=== PATIENT | male | born 1945 | race Two or more races ===

== ENCOUNTER 2024-08-31 10:46 | Inpatient (IN) | payer MEDICARE ==
[~2024-08-31] VITALS: Ht 170.2 cm; Wt 112.5 kg
[2024-08-31 01:00] VITALS: BP 124/55; PULSE 94; RESP 17; TEMP 97.6; O2SAT 95
--- NOTE | 2024-08-31 11:24 | DVH ---
CHEST RADIOGRAPH Indication: palpitations Technique: Single frontal view of the chest was obtained COMPARISON: None FINDINGS: Lines and Tubes: None Lungs: Bibasilar atelectasis. Pleura: No effusion. No pneumothorax. Cardiomediastinal contours: Mild cardiomegaly. Bones: Unremarkable IMPRESSION: 1. Mild cardiomegaly with bibasilar atelectasis.
[2024-08-31 11:41] VITALS: PULSE 115; RESP 14; O2SAT 95
[2024-08-31 11:48] LABS: Basophils # (auto) 0 10 ^3/uL (0-0.2); Basophils % (auto) 0.4 % (0.0-2.0); Eosinophils # (auto) 0.1 10 ^3/uL (0-0.8); Eosinophils % (auto) 1.3 % (0.0-7.0); Hematocrit 46.4 % (41.0-53.0); Hemoglobin 15.4 g/dL (13.5-17.5); Lymphocytes # (auto) 2.1 10 ^3/uL (0.4-5.4); Lymphocytes % (auto) 23.6 % (10.0-50.0); Mean Corpuscular Hemoglobin 31.5 pg (28.0-32.0); Mean Corpuscular Hgb Conc. 33.3 g/dL (32.0-36.0); Mean Corpuscular Volume 94.5 fL (80.0-100.0); Monocytes # (auto) 0.7 10 ^3/uL (0-1.3); Monocytes % (auto) 8.2 % (0.0-12.0); Neutrophils # (auto) 5.9 10 ^3/uL (1.6-8.6); Neutrophils % (auto) 66.5 % (37.0-80.0); Nucleated Red Blood Cells % 0.1 %; Platelet Count (auto) 207 10^3/uL (140-450); Red Blood Cells 4.91 10^6/uL (4.5-5.90); Red Cell Distribution Width 14.3 % (11.8-14.3); White Blood Cell 8.9 10^3/uL (4.4-10.8)
[2024-08-31 11:53] LABS: Urine Bacteria None Seen /hpf (None Seen)
[2024-08-31 12:04] LABS: INR 0.93 (0.9-1.15); Partial Thromboplastin Time 28.1 SEC (24.5-34.5); Prothrombin Time 9.9 sec (9.3-11.8)
--- NOTE | 2024-08-31 12:09 | ED.PDOC ---
HPI Comments 79 y.o male with PMHx of Neuropathy, Pulmonary HTN, hyperlipidemia, and Pre DM, presents to the ED for an evaluation of palpitations. Patient reports he woke up this morning with a HR of 134 that would not go down, states he arrived to this area yesterday from [place] via driving. Patient denies any chest pain, SOB, nausea, vomiting, diarrhea, leg pain, fever, or chills. Patient does report frequent irregular heart rate tracked by his watch device but has not been diagnosed with AFIB. Patient denies any recent stress or caffeine intake. Patient also reports a history of Left bundle branch block on his EKG but no previous EKG at this hospital as it is his first time here. No substance, alcohol or tobacco use. Chief Complaint: Palpitations Time Seen by MD: 11:00 Reviewed Notes: Nurses Notes, Medications, Allergies Allergies: Coded Allergies: NO KNOWN ALLERGIES (Unverified , 08/31/24) Information Source: Patient Mode of Arrival: Ambulatory Severity: Moderate Timing: Hours Duration: Since onset Cardiac Risk Factors: HTN, Diabetes PE Risk Factors: None History of: None Modifying Factors: Nothing Associated Signs and Symptoms: None Past Medical History PAST MEDICAL HISTORY: DM (Pre ), HTN (Pulmonary ) Past Medical History (Other): Neuropathy Surgical History (Other): back, Back fusions x2, knee x 3 Family History Family History: Reviewed,noncontributory to illness Social History Smoker: Non-Smoker Alcohol: Denies ETOH Use Drugs: Denies Drug Use Lives In: Home Constitutional: denies: chills, diaphoresis, fatigue, fever, malaise, sweats, weakness, others EENTM: denies: blurred vision, double vision, ear bleeding, ear discharge, ear drainage, ear pain, ear ringing, eye pain, eye redness, hearing loss, mouth pain, mouth swelling, nasal discharge, nose bleeding, nose congestion, nose pain, photophobia, tearing, throat pain, throat swelling, voice changes, others Respiratory: denies: cough, hemoptysis, orthopnea, SOB at rest, shortness of breath, SOB with excertion, stridor, wheezing, others Cardiovascular: reports: palpitations; denies: chest pain, dizzy spells, diaphoresis, Dyspnea on exertion, edema, irregular heart beat, left arm pain, l ightheadedness, PND, syncope, others Gastrointestinal: denies: abdomen distended, abdominal pain, blood streaked bowels, constipated, diarrhea, dysphagia, difficulty swallowing, hematemesis, melena, nausea, poor appetite, poor fluid intake, rectal bleeding, rectal pain, vomiting, others Genitourinary: denies: burning, dysuria, flank pain, frequency, hematuria, incontinence, penile discharge, penile sore, pain, testicle pain, testicle swelling, urgency, others Neurological: denies: dizziness, fainting, headache, left sided numbness, left sided weakness, numbness, paresthesia, pre-existing deficit, right sided numbness, right sided weakness, seizure, speech problems, tingling, tremors, weakness, others Musculoskeletal: denies: back pain, gout, joint pain, joint swelling, muscle pain, muscle stiffness, neck pain, others Integumetry: denies: bruises, change in color, change in hair/nails, dryness, laceration, lesions, lumps, rash, wounds, others Allergic/Immunocompromised: denies: Difficulty Healing, Frequent Infections, Hives, Itching, others Hematologic/Lymphatic: denies: anemia, blood clots, easy bleeding, easy bruising, swollen glands, others Endocrine: denies: excessive hunger, excessive sweating, excessive thirst, excessive urination, flushing, intolerance to cold, intolerance to heat, unexplained weight gain, unexplained weight loss, others Psychiatric: denies: anxiety, bipolar disorder, depression, hopeless, panic disorder, schizophrenia, sleepless, suicidal, others All Other Systems: Reviewed and Negative Physical Exam General Appearance: No Apparent Distress, Normal HEENT: Normal ENT Inspection, Pharynx Normal, TMs Normal Neck: Full Range of Motion, Non-Tender, Normal, Normal Inspection Respiratory: Lungs Clear, No Respiratory Distress, Normal Breath Sounds Cardiovascular: No Edema, No JVD, No Murmur, Normal Peripheral Pulses, Tachycardia Breast Exam: Deferred Gastrointestinal: No Organomegaly, Non Tender, No Pulsatile Mass, Normal Bowel Sounds, Soft Genitalia: Deferred Pelvic: Deferred Rectal: Deferred Extremities: No calf tenderness, Normal capillary refill, Normal inspection, Normal range of motion, Non-tender, No pedal edema Musculoskeletal : Apperance: Normal Neurologic: Alert, back end web developer II-XII nml as Tested, No Motor Deficits, Normal Affect, Normal Mood, No Sensory Deficits Cerebellar Function: Normal Reflexes: Normal Skin: Dry, Normal Color, Warm Lymphatic: No Adenopathy EKG EKG : Pulse Rate (adult): 152 Gray: Normal Cardiac Rhythm: NSR Block: RBBB Hypertrophy: None ST: Nonsp Comments wide complex tachycardia with a rate of 152 with regular rhythm serial EKGs show same wide complex( likely RBBB) st, which improved from 152 to 114 to92 Was a procedure done? Was a procedure done?: No CP Differential Dx Differential Diagnosis: A-fib, A-Flutter, Angina, Anxiety / Panic Attack, Atrial Dysrhythmia, Electrolyte Disorder, Heart Failure, Hyperthyroidism, Hyperventilation, Hypoxia, MAT, PA, PAC's, PSVT, Pulmonary Embolus, PVC's, Renal Failure, Sinus Tachycardia, Torsades De Pointes, Ventricular Dysrhythmia, V-Fib, V-Tach, WPW X-Ray, Labs, Meds, VS Vital Signs Date Time Temp Pulse Resp B/P (MAP) Pulse Ox O2 Delivery O2 Flow Rate FiO2 08/31/24 13:38 92 08/31/24 12:23 98.2 105 17 117/65 (82) 94 98.2 08/31/24 12:09 152 08/31/24 11:41 98.0 115 14 123/66 (85) 93 98.0 08/31/24 11:41 115 14 95 Nasal Cannula* 2 28 08/31/24 11:32 114 08/31/24 10:57 152 08/31/24 10:53 97.7 152 20 122/69 (86) 96 Lab Test 08/31/24 13:02 08/31/24 11:10 08/31/24 11:01 Range/Units Troponin I High Sensitivity 8 8 </=54 ng/L White Blood Count 8.9 4.4-10.8 10^3/uL Red Blood Count 4.91 4.5-5.90 10^6/uL Hemoglobin 15.4 13.5-17.5 g/dL Hematocrit 46.4 41.0-53.0 % Mean Corpuscular Volume 94.5 80.0-100.0 fL Mean Corpuscular Hemoglobin 31.5 28.0-32.0 pg Mean Corpuscular Hemoglobin Concent 33.3 32.0-36.0 g/dL Red Cell Distribution Width 14.3 11.8-14.3 % Platelet Count 207 140-450 10^3/uL Mean Platelet Volume 10.3 6.9-10.8 fL Neutrophils (%) (Auto) 66.5 37.0-80.0 % Lymphocytes (%) (Auto) 23.6 10.0-50.0 % Monocytes (%) (Auto) 8.2 0.0-12.0 % Eosinophils (%) (Auto) 1.3 0.0-7.0 % Basophils (%) (Auto) 0.4 0.0-2.0 % Neutrophils # (Auto) 5.9 1.6-8.6 10 ^3/uL Lymphocytes # (Auto) 2.1 0.4-5.4 10 ^3/uL Monocytes # (Auto) 0.7 0-1.3 10 ^3/uL Eosinophils # (Auto) 0.1 0-0.8 10 ^3/uL Basophils # (Auto) 0 0-0.2 10 ^3/uL Nucleated Red Blood Cells 0.1 % Prothrombin Time 9.9 9.3-11.8 sec Prothrombin Time INR 0.93 0.9-1.15 Activated Partial Thromboplast Time 28.1 24.5-34.5 SEC D-Dimer, Quantitative 0.40 0.0-0.49 mg/L FEU Sodium Level 143 136-145 mmol/L Potassium Level 4.0 3.5-5.1 mmol/L Chloride Level 112 H 98-107 mmol/L Carbon Dioxide Level 19 L 20-31 mmol/L Anion Gap 12 5-15 Blood Urea Nitrogen 28 H 9-23 mg/dL Creatinine 1.90 H 0.700-1.30 mg/dL Glomerular Filtration Rate Calc 35 >90 mL/min BUN/Creatinine Ratio 14.7 10.0-20.0 Serum Glucose 178 H 74-106 mg/dL Calcium Level 9.5 8.7-10.4 mg/dL Total Bilirubin 0.3 0.2-1.0 mg/dL Aspartate Amino Transferase (AST) 25 13-40 U/L Alanine Aminotransferase (ALT) 51 H 7-40 U/L Alkaline Phosphatase 91 46-116 U/L Total Protein 6.7 5.7-8.2 g/dL Albumin 4.7 3.2-4.8 g/dL Urine Color Colorless Yellow Urine Clarity Clear Clear Urine pH 5.0 5.0-9.0 Urine Specific [place] 1.009 1.001-1.035 Urine Protein Negative Negative Urine Ketones Negative Negative Urine Blood Negative Negative /uL Urine Nitrite Negative Negative Urine Bilirubin Negative Negative Urine Urobilinogen Normal Negative mg/dL Urine Leukocyte Esterase Negative Negative /uL Urine RBC <1 0 - 3 /hpf Urine Microscopic WBC < 1 0-3 /HPF Urine Squamous Epithelial Cells None seen <5 /hpf Urine Bacteria None seen None Seen /hpf Urine Glucose Normal Normal mg/dL [facility] [id number] [place] [address] Ph: [phone] DIAGNOSTIC IMAGING Diagnostic Imaging Report : [id number] Signed PATIENT: PARUL FLANNERY ACCT: [id number] UNIT: [id number] : 1945 LOC: ER ROOM / BED: / AGE / SEX: 79 / M ADM STATUS: REG ER SERVICE 1101 ORDERING PHYSICIAN: EDWAR AYALA MD PROCEDURE(s): CXRP - CHEST PORTABLE REASON: palpitations ORDER NUMBER(s): [id number], ACCESSION NUMBER(s): [id number] CHEST RADIOGRAPH Indication: palpitations Technique: Single frontal view of the chest was obtained COMPARISON: None FINDINGS: Lines and Tubes: None Lungs: Bibasilar atelectasis. Pleura: No effusion. No pneumothorax. Cardiomediastinal contours: Mild cardiomegaly. Bones: Unremarkable IMPRESSION: 1. Mild cardiomegaly with bibasilar atelectasis. ATED BY: FEDERICO PENNY MD DICTATED DATE/TIME: 08/31/24 112 SIGNED BY: FEDERICO PENNY MD SIGNED DATE/TIME: 08/31/24 112 CC: Time of 1ST Reevaluation: 12:03 Reevaluation 1ST: Unchanged Time of 2ND Reevaluation: 14:25 Reevaluation 2ND: Improved Patient Education/Counseling: Diagnosis, Treatment, Prognosis, Need For Follow Up Family Education/Counseling: Diagnosis, Treatment, Prognosis, Need For Follow Up Additional Information I reviewed the following notes from patient's past medical encounters: None The following tests were ordered, and results were reviewed by me: PTPTT, D- dimer, EKG x3, Troponin x 3, BMP, CBC, UA Additional Information was gathered from interviewing the following independent historians: (Family, Other Providers, EMT) I reviewed and agreed with the following test results read by other providers: CXR I discussed treatment and results with medical personnel and family pt is improved with his HR spontaneously improved. however, it is unknown if the RBB is new or not. also. he likely h ad svt with RBBB, but the cause is undetermined. he does not have calf pain, nor is his DDI elevated. the fact that the HR improved, also makes PE unlikely. in addition, he has renal failure. he does not live here and plans to drive home to [place]. i feel pt needs to be evaluated before he can drive back. he has no followups here, so will need inpatient cardiology consult Departure 1 Departure Time of Disposition: 14:30 Impression: Primary Impression: Dyspnea Qualified Codes: R06.02 - Shortness of breath Additional Impressions: Palpitation Tachycardia Right bundle branch block Renal failure Qualified Codes: N19 - Unspecified kidney failure Disposition: ADMITTED INPATIENT Admit to: Tele Condition: Stable Critical Care Note Critical Care Time?: Yes (55 min-critical care time only) Critical care comment: Due to concerns for patients condition deteriorating, the care required my highest level of attention and readiness to intervene. I assessed the patient, reviewed the medical records, ordered the appropriate tests and treatments, then reassessed for results and responsiveness. I communicated with medical personnel and consultants and formulated a plan of care. Total critical care time excludes any procedures Stability Stability form required: No Heart Score Heart Score: Heart Score Response (Comments) Value History Moderate Suspicious 1 EKG Repolarization Disturb 1 Age >65 2 Risk Factors >3 or Hx ASHD 2 Troponin Normal limit 0 Total 6 I personally scribed for JIA HERNANDEZ MD ([email or web address]) on 08/31/24 at 12:09. Sulema ctronically submitted by Shelly Lawson ([facility]). JIA HERNANDEZ MD Aug 31, 2024 12:09
[2024-08-31 12:10] LABS: Urine Blood Negative /uL (Negative); Urine Clarity Clear (Clear); Urine Color Colorless (Yellow); Urine Protein, UAD Negative (Negative); Urine Specific Gravity 1.009 (1.001-1.035); Urine Squamous Epithelial Cell None Seen /hpf (<5); Urine Urobilinogen Normal (Negative); Urine WBC < 1 /HPF (0-3)
[2024-08-31 12:14] LABS: Albumin 4.7 g/dL (3.2-4.8); Alkaline Phosphatase 91 U/L (46-116); Anion Gap 12 (5-15); Aspartate Aminotransferase 25 U/L (13-40); BUN/Creatinine Ratio 14.7 (10.0-20.0); Calcium 9.5 mg/dL (8.7-10.4); Sodium 143 mmol/L (136-145)
[2024-08-31 12:15] LABS: Bilirubin, Total 0.3 mg/dL (0.2-1.0); Total Protein 6.7 g/dL (5.7-8.2)
[2024-08-31 12:18] LABS: Alanine Aminotransferase 51 U/L (7-40); Blood Urea Nitrogen 28 mg/dL (9-23); Carbon Dioxide 19 mmol/L (20-31); Chloride 112 mmol/L (98-107); Glucose 178 mg/dL (74-106)
--- NOTE | 2024-08-31 15:59 | ECG ---
[facility] Test Date: 2024-08-31 Test Time: 11:32:39 Pat Name: PARUL FLANNERY Department: ER Room: Gender: M Clinical Educator: ALBINO : 1945 Requested By: EDWAR AYALA Order Number: [id number] Reading MD: Measurements Intervals [place] Rate: 114 P: 79 SC: 170 QRS: -79 QRSD: 145 T: 38 QT: 348 QTc: 480 Interpretive Statements Sinus tachycardia Right bundle branch block Anterolateral infarct, age indeterminate Please click the below link to view image of tracing.
--- NOTE | 2024-08-31 15:59 | ECG ---
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
[2024-08-31] MEDS ORDERED: DOCUSATE SOD 100 MG CAP PO PRN (16:30)
[2024-08-31] MEDS ORDERED: ONDANSETRON HCL 4 MG/2 ML VIAL IV PRN (16:30)
[2024-08-31] MEDS ORDERED: ACETAMINOPHEN 325 MG TAB PO PRN (16:30)
[2024-08-31] MEDS: LACTATED RINGER'S 1,000 ML IV ONE (16:40)
--- NOTE | 2024-08-31 16:48 | DVHHP2 ---
Admitting Diagnosis: Palpitation History of Present Illness 1 y.o male with PMHx of Neuropathy, Pulmonary HTN, hyperlipidemia, and Pre DM, presents to the ED for an evaluation of palpitations. Patient reports he woke up this morning with a HR of 134 that would not go down, states he arrived to this area yesterday from [place] via driving. Patient denies any chest pain, SOB, nausea, vomiting, diarrhea, leg pain, fever, or chills. Patient does report frequent irregular heart rate tracked by his watch device but has not been diagnosed with AFIB. Patient denies any recent stress or caffeine intake. Patient also reports a history of Left bundle branch block on his EKG but no previous EKG at this hospital as it is his first time here. No substance, alcohol or tobacco use. PAST MEDICAL HISTORY: DM (Pre ), HTN (Pulmonary ) Past Medical History (Other): Neuropathy Surgical History (Other): back, Back fusions x2, knee x 3 Family History Family History: Reviewed,noncontributory to illness Social History Smoker: Non-Smoker Alcohol: Denies ETOH Use Drugs: Denies Drug Use Lives In: Home Allergies: Coded Allergies: NO KNOWN ALLERGIES (Unverified , 08/31/24) Current Medications Current Medications Medications (Trade) Dose Ordered Sig/Nagi Route PRN Reason Start Time Stop Time Status Last Admin Sodium Chloride (Saline Lock Ns) 10 ml Q8HR IV 08/31/24 22:00 UNV Docusate Sodium (Colace Capsule) 100 mg BIDPRN PRN PO FOR CONSTIPATION 08/31/24 16:30 UNV Acetaminophen (Tylenol Tablet) 650 mg Q6HP PRN PO PAIN SCALE 1-3 OR TEMP>100.4 08/31/24 16:30 UNV Ondansetron HCl (Zofran) 4 mg Q4HP PRN IV NAUSEA / VOMITING 08/31/24 16:30 UNV Vital Signs Vital Signs Date Time Temp Pulse Resp B/P (MAP) Pulse Ox O2 Delivery O2 Flow Rate FiO2 08/31/24 15:36 84 16 116/57 (76) 96 08/31/24 14:33 97.8 97.8 08/31/24 11:41 Nasal Cannula* 2 28 Physical Exam 79 years old male well nourished well developed. No apparent distress HEENT-atraumatic normocephalic Heart-regular rate and rhythm Lungs clear to auscultate Abdomen soft nontender nondistended Musculoskeletal-plus one pitting edema Neuro-AO x3, no focal deficits Results Labs Test 08/31/24 13:02 08/31/24 11:10 08/31/24 11:01 Range/Units Troponin I High Sensitivity 8 </=54 ng/L White Blood Count 8.9 4.4-10.8 10^3/uL Red Blood Count 4.91 4.5-5.90 10^6/uL Hemoglobin 15.4 13.5-17.5 g/dL Hematocrit 46.4 41.0-53.0 % Mean Corpuscular Volume 94.5 80.0-100.0 fL Mean Corpuscular Hemoglobin 31.5 28.0-32.0 pg Mean Corpuscular Hemoglobin Concent 33.3 32.0-36.0 g/dL Red Cell Distribution Width 14.3 11.8-14.3 % Platelet Count 207 140-450 10^3/uL Mean Platelet Volume 10.3 6.9-10.8 fL Neutrophils (%) (Auto) 66.5 37.0-80.0 % Lymphocytes (%) (Auto) 23.6 10.0-50.0 % Monocytes (%) (Auto) 8.2 0.0-12.0 % Eosinophils (%) (Auto) 1.3 0.0-7.0 % Basophils (%) (Auto) 0.4 0.0-2.0 % Neutrophils # (Auto) 5.9 1.6-8.6 10 ^3/uL Lymphocytes # (Auto) 2.1 0.4-5.4 10 ^3/uL Monocytes # (Auto) 0.7 0-1.3 10 ^3/uL Eosinophils # (Auto) 0.1 0-0.8 10 ^3/uL Basophils # (Auto) 0 0-0.2 10 ^3/uL Nucleated Red Blood Cells 0.1 % Prothrombin Time 9.9 9.3-11.8 sec Prothrombin Time INR 0.93 0.9-1.15 Activated Partial Thromboplast Time 28.1 24.5-34.5 SEC D-Dimer, Quantitative 0.40 0.0-0.49 mg/L FEU Sodium Level 143 136-145 mmol/L Potassium Level 4.0 3.5-5.1 mmol/L Chloride Level 112 H 98-107 mmol/L Carbon Dioxide Level 19 L 20-31 mmol/L Anion Gap 12 5-15 Blood Urea Nitrogen 28 H 9-23 mg/dL Creatinine 1.90 H 0.700-1.30 mg/dL Glomerular Filtration Rate Calc 35 >90 mL/min BUN/Creatinine Ratio 14.7 10.0-20.0 Serum Glucose 178 H 74-106 mg/dL Calcium Level 9.5 8.7-10.4 mg/dL Total Bilirubin 0.3 0.2-1.0 mg/dL Aspartate Amino Transferase (AST) 25 13-40 U/L Alanine Aminotransferase (ALT) 51 H 7-40 U/L Alkaline Phosphatase 91 46-116 U/L Total Protein 6.7 5.7-8.2 g/dL Albumin 4.7 3.2-4.8 g/dL Urine Color Colorless Yellow Urine Clarity Clear Clear Urine pH 5.0 5.0-9.0 Urine Specific [place] 1.009 1.001-1.035 Urine Protein Negative Negative Urine Ketones Negative Negative Urine Blood Negative Negative /uL Urine Nitrite Negative Negative Urine Bilirubin Negative Negative Urine Urobilinogen Normal Negative mg/dL Urine Leukocyte Esterase Negative Negative /uL Urine RBC <1 0 - 3 /hpf Urine Microscopic WBC < 1 0-3 /HPF Urine Squamous Epithelial Cells None seen <5 /hpf Urine Bacteria None seen None Seen /hpf Urine Glucose Normal Normal mg/dL Primary Diagnosis Sinus tachycardic with a right bundle branch block KYRA on CKD Plan Patient says that he had a history of right bundle-branch block Pt has hx of CKD and lower extremity edema. Patient does not recall. Patient does not recall stage of the kidney disease over medications IV fluids for KYRA on CKD Check urine sodium, urine creatinine Nephrology consult Avoid nephrotoxic medication Check echo of the heart for arrhythmia Check TSH, T4 Admit to tele for arrhythmia Cardiology consult Full code Cardiac diet renal Heparin for DVT prophylaxis No GI prophylaxis needed Plan discussed with: Patient Problems List: (1) Tachycardia Status: Acute (2) Renal failure Status: Acute (3) Dyspnea Status: Acute (4) Right bundle branch block Status: Acute Date of Service: Aug 31, 2024 Billing Provider: LEEANNE TAYLOR MD Common Visit Codes: [id number] INP/OBS CARE (MOD) LEEANNE TAYLOR MD Aug 31, 2024 16:48
--- NOTE | 2024-08-31 17:40 | DVH ---
EXAM: US KIDNEY INDICATION: KYRA on CKD TECHNIQUE: Multiple real-time sonographic images of the kidneys and bladder were obtained. COMPARISON: None Findings: Right kidney measures 11.5 cm with normal contours, increased echotexture, and normal cortical thickn ess. Mild hydronephrosis. Nephrolithiasis. No evidence of cystic or solid lesions. Left kidney measures 12.0 cm with normal contours, increased echotexture, and normal cortical thickne ss. Mild hydronephrosis. No evidence of calculi, cystic or solid lesions. Urinary bladder is unremarkable without evidence of abnormal wall thickening, mass, or calculi. Prevo id volume 177 mL. Postvoid volume was not obtained. Impression: 1. Unremarkable sonographic study of the urinary bladder. 2. Mild bilateral hydronephrosis. 3. Right nephrolithiasis. 4. Increased echogenicity of bilateral kidneys. Correlate for medical renal disease.
--- NOTE | 2024-08-31 20:36 | DVHSR ---
APPROVED REPORT EXAM: Two-dimensional and M-mode echocardiogram with Doppler and color Doppler. Blood Pressure: 116/57 mmHg INDICATION Arrhythmia RISK FACTORS Obesity: Height: 5'7", Weight: 233 DIMENSIONS LVDd4.4 (3.8-5.7cm)LA (2D)3.4 (1.9-4.0cm)Aortic Root3.6 (2.0-3.7cm) LVDs2.9 (2.5-4.0cm)LA (MM) (1.9-4.0cm)Aortic Cusp Exc1.7 (1.5-2.0cm) EF (%) 60.0 (55-70%)Rt. Atrium3.9 (1.9-4.0cm)Asc. Aorta cm IVSd1.3 (0.7-1.1cm)RV (D) (1.8-2.4cm) PWd1.3 (0.7-1.1cm) Mitral Valve MitralMitral Stenosis E wave0.59m/sMV Mean GR.mmHg A wave0.89m/sMV Peak GR.mmHg E/A ratio0.72D MVAcm2 DECEL [id number] 1/2 Timems Aortic Valve Aortic ValveAortic Stenosis V10.75m/Valerie Mean GR.3mmHg V21.12m/Valerie Peak GR.5mmHg LVOT Diameter2.3 (1.8-2.4cm)Doppler AVA2.78cm2 Pulmonic Valve V20.73m/s LEFT VENTRICLE The left ventricle is normal size. There is mild concentric left ventricular hypertrophy. The left ventricle is normal in structure and function, LVEF 55%. Mild diastolic dysfunction. Normal wall motion. RIGHT VENTRICLE The right ventricular systolic function is normal. ATRIA The left atrial size is normal. The right atrium size is normal. MITRAL VALVE The mitral valve is grossly normal. Mitral regurgitation is trace. PULMONIC VALVE The pulmonic valve is grossly normal in structure and function. There is no pulmonic valvular regurgitation. TRICUSPID VALVE The tricuspid valve is grossly normal. There is trace tricuspid regurgitation. AORTIC VALVE The aortic valve is trileaflet. No aortic regurgitation is present. GREAT VESSELS The aortic root is normal size. PERICARDIAL EFFUSION No significant pericardial effusion. Other Information Technically limited study due to body habitus. Conclusion The left ventricle is normal size. There is mild concentric left ventricular hypertrophy. The left ve ntricle is normal in structure and function, LVEF 55%. Mild diastolic dysfunction. Normal wall motion . The right ventricular systolic function is normal. The left and right atrial size is normal. No significant valvular disease. No significant pericardial effusion.
[2024-08-31 21:29] VITALS: BP 143/72; PULSE 85; RESP 19; TEMP 97.7; O2SAT 98
[2024-08-31 21:49] VITALS: PULSE 74; RESP 17; O2SAT 95
[2024-08-31] MEDS: SODIUM CHLOR 0.9% PF (SALINE LOCK) 10ML VIAL/SYR IV SCH (22:00)
[2024-08-31] MEDS ORDERED: FIN5T PO (22:03)
[2024-08-31] MEDS ORDERED: TAMS0.4C39 PO (22:03)
[2024-08-31] MEDS ORDERED: FURO20TA4 PO (22:03)
[2024-08-31] MEDS ORDERED: METF-370 PO (22:03)
[2024-08-31] MEDS ORDERED: CLIN1GEL24 TOP (22:03)
[2024-08-31] MEDS ORDERED: ATOR40TA52 PO (22:03)
[2024-08-31] MEDS ORDERED: TOPI50TA53 PO (22:03)
[2024-08-31] MEDS ORDERED: PHEN-1148 PO (22:03)
[2024-08-31] MEDS ORDERED: NIAC1TAB30 PO (22:03)
[2024-08-31] MEDS ORDERED: [UNRECOGNIZED DRUG - CODE] PO (22:03)
[2024-08-31] MEDS ORDERED: KETO2CRE4 TOP (22:03)
[2024-08-31] MEDS ORDERED: POTA-211 PO (22:03)
[2024-08-31] MEDS ORDERED: GAB100C PO (22:03)
[2024-08-31] MEDS ORDERED: IRBE150T49 PO (22:03)
[2024-09-01 05:00] VITALS: BP 139/72; PULSE 76; RESP 18; TEMP 97.7; O2SAT 97
[2024-09-01 07:41] LABS: Basophils # (auto) 0 10 ^3/uL (0-0.2); Basophils % (auto) 0.4 % (0.0-2.0); Eosinophils # (auto) 0.2 10 ^3/uL (0-0.8); Eosinophils % (auto) 2.1 % (0.0-7.0); Hematocrit 46.4 % (41.0-53.0); Lymphocytes # (auto) 2.3 10 ^3/uL (0.4-5.4); Lymphocytes % (auto) 26.8 % (10.0-50.0); Mean Corpuscular Hemoglobin 31.1 pg (28.0-32.0); Mean Corpuscular Hgb Conc. 32.4 g/dL (32.0-36.0); Monocytes # (auto) 0.8 10 ^3/uL (0-1.3); Monocytes % (auto) 8.8 % (0.0-12.0); Neutrophils # (auto) 5.4 10 ^3/uL (1.6-8.6); Neutrophils % (auto) 61.9 % (37.0-80.0); Nucleated Red Blood Cells % 0.1 %; Platelet Count (auto) 203 10^3/uL (140-450); Red Blood Cells 4.84 10^6/uL (4.5-5.90); Red Cell Distribution Width 14.6 % (11.8-14.3); White Blood Cell 8.7 10^3/uL (4.4-10.8)
[2024-09-01 08:00] VITALS: PULSE 92
[2024-09-01 08:07] LABS: Albumin 4.7 g/dL (3.2-4.8); Alkaline Phosphatase 87 U/L (46-116); Anion Gap 9 (5-15); Aspartate Aminotransferase 28 U/L (13-40); Bilirubin, Total 0.5 mg/dL (0.2-1.0); Calcium 9.8 mg/dL (8.7-10.4); Carbon Dioxide 24 mmol/L (20-31); Glucose 99 mg/dL (74-106); Magnesium 2.1 mg/dL (1.6-2.6); Potassium 4.2 mmol/L (3.5-5.1); Sodium 142 mmol/L (136-145); Total Protein 6.8 g/dL (5.7-8.2)
[2024-09-01 08:22] LABS: Alanine Aminotransferase 55 U/L (7-40); Blood Urea Nitrogen 25 mg/dL (9-23); Chloride 109 mmol/L (98-107)
[2024-09-01 09:00] VITALS: BP 117/45; PULSE 93; RESP 18; TEMP 98.1; O2SAT 92
--- NOTE | 2024-09-01 12:10 | ECG ---
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
[2024-09-01 13:00] VITALS: BP 144/84; PULSE 81; RESP 18; TEMP 97.8; O2SAT 95
--- NOTE | 2024-09-01 16:05 | DVHINCON2 ---
Date Seen: Sep 01, 2024 Referring Physician MD Eugene Reason for Consultation Palpitations, arrhythmia History of Present Illness This is an 79-year-old male patient who presents to emergency room with chief complaint of tachycardia. The patient reports that he checked his pulse via pulse oximetry and noticed that his heart rate was elevated and sustaining between 130-160's. He denies any symptoms of palpitations, chest pain, or shortness of breath. The patient was urged to come to the emergency room by his son who then drove him to the emergency room. Upon emergency room arrival, a twelve lead electrocardiogram revealed sinus tachycardia versus SVT with aberrancy (reviewed with ). The patient was then able to convert into a normal sinus rhythm with right bundle branch block without any medication while in the emergency room. At the time of assessment, the patient denies any cardiac symptoms. Initial troponin level was negative. Significant past medical history includes hypertension, dyslipidemia, prediabetes, pulmonary hypertension, BPH, and obesity. Is worth noting that the patient reports taking phentermine at home for weight loss. He denies any caffeine intake. He does not see a biomedical engineering technologist in the outpatient setting. Past Medical History Past medical history reviewed. No other significant than mentioned above. Past Surgical History Back fusion Family History: Patient reports no known family medical history. Family History Family history reviewed. Social History Denies the use of tobacco, alcohol or illicit drugs. Allergies: Coded Allergies: NO KNOWN ALLERGIES (Unverified , 08/31/24) Home Meds Reported Medications Clindamycin Phosphate (Clindamycin Phosphate) 1 % Gel, 1 APPLIC TOP BID 08/31/24 Ketoconazole (Ketoconazole) 2 % Cre, 1 APPLIC TOP DAILY 08/31/24 Gabapentin (Gabapentin) 100 Mg Cap, 2 CAP PO BID 08/31/24 Topiramate (Topiramate) 50 Mg Tab, 1 TAB PO BID 08/31/24 Furosemide (Furosemide) 20 Mg Tab, 2 TAB PO DAILY 08/31/24 Tamsulosin Hcl (Tamsulosin Hcl) 0.4 Mg Cap, 1 CAP PO HS 08/31/24 Tadalafil (Tadalafil) 20 Mg Tab, 1 TAB PO DAILY 08/31/24 Potassium Chloride (Klor-Con 10) 10 Meq Tab, 1 TAB PO BID 08/31/24 Niacin (Niacin ER) 500 Mg Tab, 500 MG PO HS, TAB 08/31/24 Irbesartan (IRBESARTAN) 150 Mg Tab, 1 TAB PO DAILY 08/31/24 Finasteride (Finasteride) 5 Mg Tab, 1 TAB PO DAILY 08/31/24 Atorvastatin Calcium (ATORVASTATIN CALCIUM) 40 Mg Tab, 1 TAB PO DAILY 08/31/24 Metformin Hydrochloride (Metformin Hcl) 500 Mg Tab, 1 TAB PO BID 08/31/24 Phentermine HCl (Phentermine Hydrochloride) 37.5 Mg Cap, 1 CAP PO DAILY 08/31/24 Home Meds Home medications reviewed. Current Medications Current Medications Medications (Trade) Dose Ordered Sig/Nagi Route PRN Reason Start Time Stop Time Status Last Admin Sodium Chloride (Saline Lock Ns) 10 ml Q8HR IV 08/31/24 22:00 09/01/24 14:22 Docusate Sodium (Colace Capsule) 100 mg BIDPRN PRN PO FOR CONSTIPATION 08/31/24 16:30 Acetaminophen (Tylenol Tablet) 650 mg Q6HP PRN PO PAIN SCALE 1-3 OR TEMP>100.4 08/31/24 16:30 Ondansetron HCl (Zofran) 4 mg Q4HP PRN IV NAUSEA / VOMITING 08/31/24 16:30 Review of Systems Constitutional: No symptom reported Ears, Nose, & Throat: No symptom reported Eyes: No symptom reported Neurological: No symptoms reported Pulmonary/Respiratory: No symptoms reported Cardiovascular: Tachycardia Gastrointestinal: No symptom reported Genitourinary: No symptom reported Musculoskeletal: No symptom reported Skin: No symptom reported Psychiatric: No symptom reported Endocrine: No symptom reported Hematologic/Lymphatic: No symptom reported Vital Signs Vital Signs Date Time Temp Pulse Resp B/P (MAP) Pulse Ox O2 Delivery O2 Flow Rate FiO2 09/01/24 13:00 97.8 81 18 144/84 (104) 95 97.8 09/01/24 08:05 Room Air* 0 21 Physical Exam General Appearance: Cooperative. Morbidly abuse Pulmonary/Respiratory: Clear, bilateral breaths sounds. Cardiovascular/Chest: Regular rate and rhythm. Peripheral Pulses: 2+ Radial (R). 2+ Radial (L). 2+ Pedal (R). 2+ Pedal (L) Abdominal Exam: Normal bowel sounds. Ankle Exam: Negative ankle edema Lower extremities: Negative lower extremity edema Neuro/Mental Status: A/OX4, coherent. Thoughts/Psych: Normal thought pattern. Appropriate mood and affect. Good judgment and insight. Appearance: No acute distress. Skin Exam: Normal inspection. Normal color. Warm and dry. Labs/Diagnostic Data Labs Test 09/01/24 06:53 08/31/24 13:02 08/31/24 11:10 08/31/24 11:01 Range/Units White Blood Count 8.7 4.4-10.8 10^3/uL Red Blood Count 4.84 4.5-5.90 10^6/uL Hemoglobin 15.0 13.5-17.5 g/dL Hematocrit 46.4 41.0-53.0 % Mean Corpuscular Volume 96.0 80.0-100.0 fL Mean Corpuscular Hemoglobin 31.1 28.0-32.0 pg Mean Corpuscular Hemoglobin Concent 32.4 32.0-36.0 g/dL Red Cell Distribution Width 14.6 H 11.8-14.3 % Platelet Count 203 140-450 10^3/uL Mean Platelet Volume 9.7 6.9-10.8 fL Neutrophils (%) (Auto) 61.9 37.0-80.0 % Lymphocytes (%) (Auto) 26.8 10.0-50.0 % Monocytes (%) (Auto) 8.8 0.0-12.0 % Eosinophils (%) (Auto) 2.1 0.0-7.0 % Basophils (%) (Auto) 0.4 0.0-2.0 % Neutrophils # (Auto) 5.4 1.6-8.6 10 ^3/uL Lymphocytes # (Auto) 2.3 0.4-5.4 10 ^3/uL Monocytes # (Auto) 0.8 0-1.3 10 ^3/uL Eosinophils # (Auto) 0.2 0-0.8 10 ^3/uL Basophils # (Auto) 0 0-0.2 10 ^3/uL Nucleated Red Blood Cells 0.1 % Sodium Level 142 136-145 mmol/L Potassium Level 4.2 3.5-5.1 mmol/L Chloride Level 109 H 98-107 mmol/L Carbon Dioxide Level 24 20-31 mmol/L Anion Gap 9 5-15 Blood Urea Nitrogen 25 H 9-23 mg/dL Creatinine 1.67 H 0.700-1.30 mg/dL Glomerular Filtration Rate Calc 41 >90 mL/min BUN/Creatinine Ratio 15.0 10.0-20.0 Serum Glucose 99 74-106 mg/dL Calcium Level 9.8 8.7-10.4 mg/dL Magnesium Level 2.1 1.6-2.6 mg/dL Total Bilirubin 0.5 0.2-1.0 mg/dL Aspartate Amino Transferase (AST) 28 13-40 U/L Alanine Aminotransferase (ALT) 55 H 7-40 U/L Alkaline Phosphatase 87 46-116 U/L Total Protein 6.8 5.7-8.2 g/dL Albumin 4.7 3.2-4.8 g/dL Troponin I High Sensitivity 8 </=54 ng/L Prothrombin Time 9.9 9.3-11.8 sec Prothrombin Time INR 0.93 0.9-1.15 Activated Partial Thromboplast Time 28.1 24.5-34.5 SEC D-Dimer, Quantitative 0.40 0.0-0.49 mg/L FEU Thyroid Stimulating Hormone (TSH) 2.45 0.55-4.78 uIU/mL Urine Color Colorless Yellow Urine Clarity Clear Clear Urine pH 5.0 5.0-9.0 Urine Specific [place] 1.009 1.001-1.035 Urine Protein Negative Negative Urine Ketones Negative Negative Urine Blood Negative Negative /uL Urine Nitrite Negative Negative Urine Bilirubin Negative Negative Urine Urobilinogen Normal Negative mg/dL Urine Leukocyte Esterase Negative Negative /uL Urine RBC <1 0 - 3 /hpf Urine Microscopic WBC < 1 0-3 /HPF Urine Squamous Epithelial Cells None seen <5 /hpf Urine Bacteria None seen None Seen /hpf Urine Glucose Normal Normal mg/dL Assessment Sinus tachycardia versus SVT with aberrancy, ?Medication induced Hypertension Dyslipidemia Pulmonary hypertension Prediabetes BPH Obesity Plan/Recommendation We will continue with the following plan/recommendations (Dr. Horvath): Patient seen and examined at bedside with . Transthoracic echocardiogram reveals an EF of 55%. At this time, we will recommend to consult electrophysiology team to further investigate initial twelve lead electrocardiogram (ST vs SVT with aberrancy). We also discussed with the patient the importance of stopping phentermine as this can induced tachycardia. In the meantime, continue with close cardiac surveillance. Thank you for allowing us to care for this patient. Please call with any questions or marcello rns. Critical care time spent: 40 minutes This medical document was created using an electronic medical record system with voice recognition software and computerized dictation system. Although this document has been carefully reviewed, there might still be some phonetic and typographical errors. Occasional wrong-word or ``sound-alike substitutions may have occurred due to the inherent limitations of voice recognition software. These areas are purely typographical due to imperfections of the software programs and do not reflect any compromise in the patient's medical care. Please read the chart carefully and recognize, using context, where these substitutions have occurred. Plan discussed with: Patient NYHA Physical activity limitations: NA Date of Service: Sep 01, 2024 Billing Provider: RENAN ANDREW Cardiology Common Codes: [id number] INP/OBS CARE (High) Cardiology Consultation Codes: [id number] CONSULT <45MIN RENAN ANDREW Sep 01, 2024 16:05
--- NOTE | 2024-09-01 18:10 | DVHPN2 ---
Subjective 09/01 patient is doing well, no chest pain, no palpitations. Ambulating, tolerating p.o.. He is on tele. We will monitor for for another midnight to make sure no abnormal rhythms. Reviewed: H&P Changes from previous H/P or p: No Changes General: Per HPI Objective Vitals Vital Signs Date Time Temp Pulse Resp B/P (MAP) Pulse Ox O2 Delivery O2 Flow Rate FiO2 09/01/24 13:00 97.8 81 18 144/84 (104) 95 97.8 09/01/24 08:05 Room Air* 0 21 Intake/Output Intake and Output 09/01/24 07:00 Intake Total 400 ml Balance 400 ml Intake Oral 400 ml # Voids 1 Exam GEN: Healthy appearing, well-developed, NAD. HEENT: NC/AT; MMM. CV: RRR, no m/r/g. LUNGS: CTAB, no w/r/c. ABD: Soft, NT/ND, NBS, no masses or organomegaly. EXT: skin Warm, well perfused. no rashes. No clubbing, cyanosis, or edema. NEURO: Ambulating with no limitations. No focal deficits. Medications Current Medications Medications Dose Ordered Sig/Nagi Route Start Time Stop Time Status Last Admin Dose Admin Sodium Chloride 10 ml Q8HR IV 08/31/24 22:00 09/01/24 14:22 10 ML Docusate Sodium 100 mg BIDPRN PRN PO 08/31/24 16:30 Acetaminophen 650 mg Q6HP PRN PO 08/31/24 16:30 Ondansetron HCl 4 mg Q4HP PRN IV 08/31/24 16:30 Laboratory Results Laboratory Tests 09/01/24 06:53 Chemistry Test 09/01/24 06:53 Albumin 4.7 g/dL (3.2-4.8) Calcium Level 9.8 mg/dL (8.7-10.4) Magnesium Level 2.1 mg/dL (1.6-2.6) Total Protein 6.8 g/dL (5.7-8.2) LFT Test 09/01/24 06:53 Alanine Aminotransferase (ALT) 55 U/L (7-40) H Alkaline Phosphatase 87 U/L (46-116) Aspartate Amino Transferase (AST) 28 U/L (13-40) Total Bilirubin 0.5 mg/dL (0.2-1.0) Urinalysis Test 08/31/24 11:01 Urine Color Colorless (Yellow) Urine Clarity Clear (Clear) Urine pH 5.0 (5.0-9.0) Urine Specific [place] 1.009 (1.001-1.035) Urine Protein Negative (Negative) Urine Ketones Negative (Negative) Urine Blood Negative /uL (Negative) Urine Nitrite Negative (Negative) Urine Bilirubin Negative (Negative) Urine Urobilinogen Normal mg/dL (Negative) Urine Leukocyte Esterase Negative /uL (Negative) Urine RBC <1 /hpf (0 - 3) Urine Microscopic WBC < 1 /HPF (0-3) Urine Squamous Epithelial Cells None seen /hpf (<5) Urine Bacteria None seen /hpf (None Seen) Urine Glucose Normal mg/dL (Normal) Labs and/or images reviewed: Labs reviewed by me, Image(s) reviewed by me Assessment/Plan Assessment/Plan 09/01 patient is doing well, no chest pain, no palpitations. Ambulating, tolerating p.o.. He is on tele. We will monitor for for another midnight to make sure no abnormal rhythms. ## Palpitations ## Right bundle anamaria block ## Sinus tachycardia # KYRA on CKD-nephrology is consulted, renal ultrasound shows chronic kidney disease, bilateral hydronephrosis. We will need bedside bladder ultrasound to make sure patient does not retain. ### History NAWAF uses CPAP at home # Prediabetes - achs accuchecks # Hypertension- home meds # BPH- home meds -EKG has wide complex tachycardia, Sinus tachycardic with a right bundle branch block. -patient has no history of heart failure or coronary artery disease -patient just recently did11 hour drive to see his son. -TSH is normal -no URI symptoms TSH normal limits Troponins are negative -patient medication includes phentermine, niacin,-these medications can cause tachycardia. Hypovolemia/not drinking hydrating during drive can also cause tachycardia from volume depletion. -p.o. hydration -tele, EKG p.r.n. -hold off possible home medications causing sympathetic overdrive (niacin, phentermine) -cardiology is consulted, following - if all else negative, patient will need cardiology outpatient follow up Diet cardiac DVT out of bed GI tolerating diet Med tele Full code Plan discussed with: Patient My Orders Orders - MARIA ESTHER JACOBS MD Procedure Category Date Status Time Hi Ekg Tracing ORDERS 09/01/24 Transmitted 17:59 Finasteride Tablet PHA 09/02/24 Verified (Proscar Tablet) 10:00 Furosemide Tablet PHA 09/02/24 Verified (Lasix Tablet) 10:00 Gabapentin Capsule PHA 09/01/24 Verified (Neurontin Capsule) 22:00 Metformin PHA 09/01/24 Verified Hydrochloride 22:00 Potassium Er Tablet PHA 09/01/24 Verified (Klor-Con Tablet) 22:00 Tamsulosin PHA 09/01/24 Verified Hydrochloride (Flomax) 22:00 (Nf) Atorvastatin PHA 09/02/24 Verified Calcium 10:00 (Nf) Irbesartan PHA 09/02/24 Verified 10:00 (Nf) Tadalafil PHA 09/02/24 Verified 10:00 (Nf) Topiramate PHA 09/01/24 Verified 22:00 Date of Service: Sep 01, 2024 Billing Provider: MARIA ESTHER JACOBS MD Common Visit Codes: [id number] INP/OBS CARE(HIGH) MARIA ESTHER JACOBS MD Sep 01, 2024 18:10
--- NOTE | 2024-09-01 18:53 | DVHINCON2 ---
Date of service: Sep 01, 2024 Reason for Consultation Acute kidney injury History of Present Illness 79-year-old overweight white male with past medical history of chronic kidney disease stage 2, hypertension, BPH on prostate medications. Patient is here on vacation presents to the hospital due to severe sudden onset palpitations. Patient was admitted with a diagnosis of SVT. Nephrology consulted due to elevated creatinine level. Patient reports he has been taking multiple weight loss stimulants. In regards to his renal history he reports he has been told that his kidney function was mild to moderate, and he takes diuretics daily to prevent swelling. At presentation patient's heart rate was noted to be 160 yesterday Today patient's heart rates between 80-90 Allergies: Coded Allergies: NO KNOWN ALLERGIES (Unverified , 08/31/24) Home Meds Reported Medications Clindamycin Phosphate (Clindamycin Phosphate) 1 % Gel, 1 APPLIC TOP BID 08/31/24 Ketoconazole (Ketoconazole) 2 % Cre, 1 APPLIC TOP DAILY 08/31/24 Gabapentin (Gabapentin) 100 Mg Cap, 2 CAP PO BID 08/31/24 Topiramate (Topiramate) 50 Mg Tab, 1 TAB PO BID 08/31/24 Furosemide (Furosemide) 20 Mg Tab, 2 TAB PO DAILY 08/31/24 Tamsulosin Hcl (Tamsulosin Hcl) 0.4 Mg Cap, 1 CAP PO HS 08/31/24 Tadalafil (Tadalafil) 20 Mg Tab, 1 TAB PO DAILY 08/31/24 Potassium Chloride (Klor-Con 10) 10 Meq Tab, 1 TAB PO BID 08/31/24 Niacin (Niacin ER) 500 Mg Tab, 500 MG PO HS, TAB 08/31/24 Irbesartan (IRBESARTAN) 150 Mg Tab, 1 TAB PO DAILY 08/31/24 Finasteride (Finasteride) 5 Mg Tab, 1 TAB PO DAILY 08/31/24 Atorvastatin Calcium (ATORVASTATIN CALCIUM) 40 Mg Tab, 1 TAB PO DAILY 08/31/24 Metformin Hydrochloride (Metformin Hcl) 500 Mg Tab, 1 TAB PO BID 08/31/24 Phentermine HCl (Phentermine Hydrochloride) 37.5 Mg Cap, 1 CAP PO DAILY 08/31/24 Current Medications Current Medications Medications (Trade) Dose Ordered Sig/Nagi Route PRN Reason Start Time Stop Time Status Last Admin Sodium Chloride (Saline Lock Ns) 10 ml Q8HR IV 08/31/24 22:00 09/01/24 14:22 Finasteride (Proscar Tablet) 5 mg DAILY PO 09/02/24 10:00 Furosemide (Lasix Tablet) 40 mg DAILY PO 09/02/24 10:00 Gabapentin (Neurontin Capsule) 300 mg BID PO 09/01/24 22:00 Metformin HCl (Glucophage) 500 mg BID PO 09/01/24 22:00 Potassium Chloride (Klor-Con Tablet) 10 meq BID PO 09/01/24 22:00 Tamsulosin HCl (Flomax) 0.4 mg HS PO 09/01/24 22:00 Atorvastatin Calcium (Lipitor) 40 mg DAILY PO 09/02/24 10:00 Losartan Potassium (Cozaar Tablet) 50 mg DAILY PO 09/02/24 10:00 Patient Own Medication 1 tab DAILY PO 09/02/24 10:00 Topiramate (Topamax) 50 mg BID PO 09/01/24 22:00 Family History: Patient reports no known family medical history. Review of Systems Palpitations H&P Exam Vital Signs/I&O Vital Sign Date Time Temp Pulse Resp B/P (MAP) Pulse Ox O2 Delivery O2 Flow Rate FiO2 09/01/24 13:00 97.8 81 18 144/84 (104) 95 97.8 09/01/24 08:05 Room Air* 0 21 Intake and Output 08/31/24 09/01/24 19:00 07:00 Intake Total 400 ml Balance 400 ml Intake Oral 400 ml # Voids 1 Physical Exam Morbidly obese male Not in overt distress Regular rate and rhythm No tachycardia Large abdomen non firm nondistended 1+ bilateral ankle edema Clear to auscultation bilaterally Labs/Diagnostic Data Labs/Diagnostic Data Laboratory Tests Test 09/01/24 06:53 08/31/24 13:02 08/31/24 11:10 08/31/24 11:01 Range/Units White Blood Count 8.7 8.9 4.4-10.8 10^3/uL Red Blood Count 4.84 4.91 4.5-5.90 10^6/uL Hemoglobin 15.0 15.4 13.5-17.5 g/dL Hematocrit 46.4 46.4 41.0-53.0 % Mean Corpuscular Volume 96.0 94.5 80.0-100.0 fL Mean Corpuscular Hemoglobin 31.1 31.5 28.0-32.0 pg Mean Corpuscular Hemoglobin Concent 32.4 33.3 32.0-36.0 g/dL Red Cell Distribution Width 14.6 H 14.3 11.8-14.3 % Platelet Count 203 207 140-450 10^3/uL Mean Platelet Volume 9.7 10.3 6.9-10.8 fL Neutrophils (%) (Auto) 61.9 66.5 37.0-80.0 % Lymphocytes (%) (Auto) 26.8 23.6 10.0-50.0 % Monocytes (%) (Auto) 8.8 8.2 0.0-12.0 % Eosinophils (%) (Auto) 2.1 1.3 0.0-7.0 % Basophils (%) (Auto) 0.4 0.4 0.0-2.0 % Neutrophils # (Auto) 5.4 5.9 1.6-8.6 10 ^3/uL Lymphocytes # (Auto) 2.3 2.1 0.4-5.4 10 ^3/uL Monocytes # (Auto) 0.8 0.7 0-1.3 10 ^3/uL Eosinophils # (Auto) 0.2 0.1 0-0.8 10 ^3/uL Basophils # (Auto) 0 0 0-0.2 10 ^3/uL Nucleated Red Blood Cells 0.1 0.1 % Sodium Level 142 143 136-145 mmol/L Potassium Level 4.2 4.0 3.5-5.1 mmol/L Chloride Level 109 H 112 H 98-107 mmol/L Carbon Dioxide Level 24 19 L 20-31 mmol/L Anion Gap 9 12 5-15 Blood Urea Nitrogen 25 H 28 H 9-23 mg/dL Creatinine 1.67 H 1.90 H 0.700-1.30 mg/dL Glomerular Filtration Rate Calc 41 35 >90 mL/min BUN/Creatinine Ratio 15.0 14.7 10.0-20.0 Serum Glucose 99 178 H 74-106 mg/dL Calcium Level 9.8 9.5 8.7-10.4 mg/dL Magnesium Level 2.1 1.6-2.6 mg/dL Total Bilirubin 0.5 0.3 0.2-1.0 mg/dL Aspartate Amino Transferase (AST) 28 25 13-40 U/L Alanine Aminotransferase (ALT) 55 H 51 H 7-40 U/L Alkaline Phosphatase 87 91 46-116 U/L Total Protein 6.8 6.7 5.7-8.2 g/dL Albumin 4.7 4.7 3.2-4.8 g/dL Troponin I High Sensitivity 8 8 </=54 ng/L Prothrombin Time 9.9 9.3-11.8 sec Prothrombin Time INR 0.93 0.9-1.15 Activated Partial Thromboplast Time 28.1 24.5-34.5 SEC D-Dimer, Quantitative 0.40 0.0-0.49 mg/L FEU Thyroid Stimulating Hormone (TSH) 2.45 0.55-4.78 uIU/mL Urine Color Colorless Yellow Urine Clarity Clear Clear Urine pH 5.0 5.0-9.0 Urine Specific [place] 1.009 1.001-1.035 Urine Protein Negative Negative Urine Ketones Negative Negative Urine Blood Negative Negative /uL Urine Nitrite Negative Negative Urine Bilirubin Negative Negative Urine Urobilinogen Normal Negative mg/dL Urine Leukocyte Esterase Negative Negative /uL Urine RBC <1 0 - 3 /hpf Urine Microscopic WBC < 1 0-3 /HPF Urine Squamous Epithelial Cells None seen <5 /hpf Urine Bacteria None seen None Seen /hpf Urine Glucose Normal Normal mg/dL Assessment Acute kidney injury hemodynamically mediated likely in the setting of hypotension from palpitations Chronic kidney disease stage 2? Palpitations in the setting of tachycardic arrhythmia likely stimulant induced BPH with mild bilateral hydronephrosis Right kidney stone Continue with diuretic therapy Recommend obtain lab review tomorrow a.m. to ensure improved renal function Patient currently does not have Caputo catheter and has mild bilateral hydronephrosis recommend continue prostate medications Recommend obtaining postvoid residual tomorrow a.m. and if patient is able to empty his bladder than advised him to return to his urologist. Rest of care as per Cardiology and primary medical team. Patient is out of town here on vacation and we will need to see his established medical doctors upon discharge Plan discussed with: Patient NIR SANTANA MD Sep 01, 2024 18:53
[2024-09-01] MEDS: TAMSULOSIN HYDROCHLORIDE 0.4 MG CAP PO SCH (19:00)
[2024-09-01] MEDS: FINASTERIDE 5 MG TAB PO SCH (19:00)
[2024-09-01 20:00] VITALS: PULSE 86; PULSE 87; RESP 18; O2SAT 94
[2024-09-01 21:00] VITALS: BP 130/65; PULSE 87; RESP 18; TEMP 97.9; O2SAT 94
[2024-09-01] MEDS: TOPIRAMATE 25 MG TAB PO SCH (21:22)
[2024-09-01] MEDS: POTASSIUM CHL 10 Meq TABLET PO SCH (21:22)
[2024-09-01] MEDS: metFORMIN HYDROCHLORIDE 500 MG TAB PO SCH (21:23)
[2024-09-01] MEDS: GABAPENTIN 300 MG CAP PO SCH (21:24)
[2024-09-01] MEDS ORDERED: TAMSULOSIN HYDROCHLORIDE 0.4 MG CAP PO SCH (22:00)
[2024-09-02] VITALS (7 sets, daily range): BP systolic 116–138; BP diastolic 55–71; PULSE 69–89; RESP 18–20; TEMP 97.4–98; O2SAT 96–98
[2024-09-02 06:50] LABS: Basophils # (auto) 0 10 ^3/uL (0-0.2); Basophils % (auto) 0.5 % (0.0-2.0); Eosinophils # (auto) 0.2 10 ^3/uL (0-0.8); Eosinophils % (auto) 2.4 % (0.0-7.0); Hematocrit 43.4 % (41.0-53.0); Hemoglobin 14.3 g/dL (13.5-17.5); Lymphocytes # (auto) 1.6 10 ^3/uL (0.4-5.4); Lymphocytes % (auto) 23.7 % (10.0-50.0); Mean Corpuscular Hemoglobin 31.4 pg (28.0-32.0); Mean Corpuscular Hgb Conc. 32.9 g/dL (32.0-36.0); Mean Corpuscular Volume 95.3 fL (80.0-100.0); Monocytes # (auto) 0.5 10 ^3/uL (0-1.3); Monocytes % (auto) 7.9 % (0.0-12.0); Neutrophils # (auto) 4.5 10 ^3/uL (1.6-8.6); Neutrophils % (auto) 65.5 % (37.0-80.0); Nucleated Red Blood Cells % 0.1 %; Platelet Count (auto) 176 10^3/uL (140-450); Red Blood Cells 4.55 10^6/uL (4.5-5.90); White Blood Cell 6.9 10^3/uL (4.4-10.8)
[2024-09-02 07:16] LABS: Albumin 4.1 g/dL (3.2-4.8); Alkaline Phosphatase 78 U/L (46-116); Anion Gap 7 (5-15); Aspartate Aminotransferase 25 U/L (13-40); BUN/Creatinine Ratio 12.8 (10.0-20.0); Blood Urea Nitrogen 19 mg/dL (9-23); Calcium 9.3 mg/dL (8.7-10.4); Carbon Dioxide 21 mmol/L (20-31); Glucose 106 mg/dL (74-106); Magnesium 2.1 mg/dL (1.6-2.6); Potassium 4.2 mmol/L (3.5-5.1); Sodium 140 mmol/L (136-145)
[2024-09-02 07:17] LABS: Bilirubin, Total 0.4 mg/dL (0.2-1.0)
[2024-09-02 07:19] LABS: Alanine Aminotransferase 48 U/L (7-40); Chloride 112 mmol/L (98-107)
[2024-09-02] MEDS ORDERED: FINASTERIDE 5 MG TAB PO SCH (10:00)
[2024-09-02] MEDS: LOSARTAN POTASSIUM 50 MG TAB PO SCH (10:30)
[2024-09-02] MEDS: FUROSEMIDE 40 MG TAB PO SCH (10:31)
[2024-09-02] MEDS: ATORVASTATIN 20 MG TAB PO SCH (10:32)
--- NOTE | 2024-09-02 14:28 | DVHPN2 ---
Progress Note Date Seen: Sep 02, 2024 Medical Necessity Reason Pt with a Central, PICC or Fol: No Subjective Patient reports: No new complaints, Feels better Review of Systems: HEENT:Normal, CVS:Normal, RESPIRATORY:Normal, GI:Normal, :Normal, MSK:Normal, NEURO:Normal Objective vital signs Vital Sign Date Time Temp Pulse Resp B/P (MAP) Pulse Ox O2 Delivery O2 Flow Rate FiO2 09/02/24 10:31 124/62 09/02/24 09:00 97.5 86 18 97 97.5 09/02/24 08:10 Room Air* 0 21 Total Intake and Output 09/01/24 09/01/24 09/02/24 15:00 23:00 07:00 Intake Total 598 ml 100 ml Balance 598 ml 100 ml medications Current Medications Medications Dose Ordered Sig/Nagi Route Start Time Stop Time Status Last Admin Dose Admin Sodium Chloride 10 ml Q8HR IV 08/31/24 22:00 09/02/24 05:53 10 ML Docusate Sodium 100 mg BIDPRN PRN PO 08/31/24 16:30 Acetaminophen 650 mg Q6HP PRN PO 08/31/24 16:30 Ondansetron HCl 4 mg Q4HP PRN IV 08/31/24 16:30 Furosemide 40 mg DAILY PO 09/02/24 10:00 09/02/24 10:31 40 MG Gabapentin 300 mg BID PO 09/01/24 22:00 09/02/24 10:31 300 MG Metformin HCl 500 mg BID PO 09/01/24 22:00 09/02/24 10:30 500 MG Potassium Chloride 10 meq BID PO 09/01/24 22:00 09/02/24 10:31 10 MEQ Atorvastatin Calcium 40 mg DAILY PO 09/02/24 10:00 09/02/24 10:32 40 MG Losartan Potassium 50 mg DAILY PO 09/02/24 10:00 09/02/24 10:30 50 MG Patient Own Medication 1 tab DAILY PO 09/02/24 10:00 Topiramate 50 mg BID PO 09/01/24 22:00 Finasteride 5 mg DAILY PO 09/01/24 19:00 09/02/24 10:32 5 MG Tamsulosin HCl 0.4 mg HS PO 09/01/24 19:00 09/01/24 21:22 0.4 MG Metoprolol Tartrate 25 mg BID PO 09/02/24 22:00 Apixaban 5 mg BID PO 09/02/24 22:00 Examination: GENERAL:Normal, HEENT:Normal, NECK:Normal, LUNGS:Normal, CVS:Normal, ABDOMEN:Normal, MSK:Normal, SKIN:Normal, NEURO:Normal, :Normal laboratory and microbiology Laboratory Tests 09/02/24 06:22 Test 09/02/24 06:22 Range/Units Serum Glucose 106 74-106 mg/dL Problem List/Assessment/Plan Problem List/Assessment/Plan Acute kidney injury hemodynamically mediated likely in the setting of hypotension from palpitations Chronic kidney disease stage 2? 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
--- NOTE | 2024-09-02 14:41 | DVHINCON2 ---
Date of service: Sep 02, 2024 Referring Physician Sarah Ford NP Reason for Consultation Arrhythmia History of Present Illness This is an 79-year old male who initially presented (08/31/2024) with reports of an elevated heart rate. Patient reports he checked his pulse oximetry and found his heart rate elevated subsequently prompting further medical evaluation. Patient reports he currently lives in [place] and is out visiting his son here in [place] and upon noticing elevation in heart rate, patient was driven by his son to the ED for further evaluation. Upon ED arrival, initial 12-lead electrocardiogram was performed revealing presence of a 2:1 atrial flutter with a ventricular rate of 152bpm, QTC interval of 546ms, and an underlying right bundle branch block. Reports indicate the patient spontaneously converted to sinus rhythm without intervention as confirmed by repeat 12-lead electrocardiogram. Initial HS troponin level was found normal at 8 with subsequent repeat level of 8. Electrolytes (potassium/magnesium) were found within normal range. TSH level was found normal at 2.45. D-Dimer was found normal at 0.40. Echocardiogram was performed revealing a preserved LVEF of 55%, mild diastolic dysfunction, with normal-sized atrial chambers. Patient himself does report he has experienced palpitations in the past for which he has underwent Cardiology evaluation/workup in [place] which he reports benign findings. Upon chart review, notes further indicate he is known to take Phentermine which could have attributed to the clinical picture. At present time of consultation, telemetry reveals sinus rhythm. Denies any chest pain, shortness of breath, palpitations, dizziness, syncope, or any further cardiac related symptoms. As the patient presented with a tachyarrhythmia, Electrophysiology services have now been involved by primary cardiology request for further evaluation/management. Past Medical History Past medical history includes hypertension, hyperlipidemia, pulmonary hypertension, benign prostatic hypertrophy, morbid obesity, obstructive sleep apnea on CPAP therapy, and right shoulder surgery Past Surgical History Reviewed Family History: Patient reports no known family medical history. Allergies: Coded Allergies: NO KNOWN ALLERGIES (Unverified , 08/31/24) Home Meds Reported Medications Clindamycin Phosphate (Clindamycin Phosphate) 1 % Gel, 1 APPLIC TOP BID 08/31/24 Ketoconazole (Ketoconazole) 2 % Cre, 1 APPLIC TOP DAILY 08/31/24 Gabapentin (Gabapentin) 100 Mg Cap, 2 CAP PO BID 08/31/24 Topiramate (Topiramate) 50 Mg Tab, 1 TAB PO BID 08/31/24 Furosemide (Furosemide) 20 Mg Tab, 2 TAB PO DAILY 08/31/24 Tamsulosin Hcl (Tamsulosin Hcl) 0.4 Mg Cap, 1 CAP PO HS 08/31/24 Tadalafil (Tadalafil) 20 Mg Tab, 1 TAB PO DAILY 08/31/24 Potassium Chloride (Klor-Con 10) 10 Meq Tab, 1 TAB PO BID 08/31/24 Niacin (Niacin ER) 500 Mg Tab, 500 MG PO HS, TAB 08/31/24 Irbesartan (IRBESARTAN) 150 Mg Tab, 1 TAB PO DAILY 08/31/24 Finasteride (Finasteride) 5 Mg Tab, 1 TAB PO DAILY 08/31/24 Atorvastatin Calcium (ATORVASTATIN CALCIUM) 40 Mg Tab, 1 TAB PO DAILY 08/31/24 Metformin Hydrochloride (Metformin Hcl) 500 Mg Tab, 1 TAB PO BID 08/31/24 Phentermine HCl (Phentermine Hydrochloride) 37.5 Mg Cap, 1 CAP PO DAILY 08/31/24 Current Medications Current Medications Medications (Trade) Dose Ordered Sig/Nagi Route PRN Reason Start Time Stop Time Status Last Admin Finasteride (Proscar Tablet) 5 mg DAILY PO 09/02/24 10:00 09/01/24 18:55 DC Furosemide (Lasix Tablet) 40 mg DAILY PO 09/02/24 10:00 09/02/24 10:31 Gabapentin (Neurontin Capsule) 300 mg BID PO 09/01/24 22:00 09/02/24 10:31 Metformin HCl (Glucophage) 500 mg BID PO 09/01/24 22:00 09/02/24 10:30 Potassium Chloride (Klor-Con Tablet) 10 meq BID PO 09/01/24 22:00 09/02/24 10:31 Tamsulosin HCl (Flomax) 0.4 mg HS PO 09/01/24 22:00 09/01/24 18:55 DC Atorvastatin Calcium (Lipitor) 40 mg DAILY PO 09/02/24 10:00 09/02/24 10:32 Losartan Potassium (Cozaar Tablet) 50 mg DAILY PO 09/02/24 10:00 09/02/24 10:30 Patient Own Medication 1 tab DAILY PO 09/02/24 10:00 Topiramate (Topamax) 50 mg BID PO 09/01/24 22:00 Finasteride (Proscar Tablet) 5 mg DAILY PO 09/01/24 19:00 09/02/24 10:32 Tamsulosin HCl (Flomax) 0.4 mg HS PO 09/01/24 19:00 09/01/24 21:22 Review of Systems A 14-point review of systems is negative unless otherwise noted above Vital Signs Vital Signs Date Time Temp Pulse Resp B/P (MAP) Pulse Ox O2 Delivery O2 Flow Rate FiO2 09/02/24 10:31 124/62 09/02/24 09:00 97.5 86 18 97 97.5 09/02/24 08:10 Room Air* 0 21 Physical Exam Heart: S1 and S2 regular. The patient is in sinus rhythm. Lungs: Clear to auscultation Abdomen: Benign. Extremities: Distal pulses palpable, 2+. With evidence for minimal edema Labs/Diagnostic Data Labs Test 09/02/24 06:22 08/31/24 13:02 08/31/24 11:10 08/31/24 11:01 Range/Units White Blood Count 6.9 4.4-10.8 10^3/uL Red Blood Count 4.55 4.5-5.90 10^6/uL Hemoglobin 14.3 13.5-17.5 g/dL Hematocrit 43.4 41.0-53.0 % Mean Corpuscular Volume 95.3 80.0-100.0 fL Mean Corpuscular Hemoglobin 31.4 28.0-32.0 pg Mean Corpuscular Hemoglobin Concent 32.9 32.0-36.0 g/dL Red Cell Distribution Width 14.0 11.8-14.3 % Platelet Count 176 140-450 10^3/uL Mean Platelet Volume 9.5 6.9-10.8 fL Neutrophils (%) (Auto) 65.5 37.0-80.0 % Lymphocytes (%) (Auto) 23.7 10.0-50.0 % Monocytes (%) (Auto) 7.9 0.0-12.0 % Eosinophils (%) (Auto) 2.4 0.0-7.0 % Basophils (%) (Auto) 0.5 0.0-2.0 % Neutrophils # (Auto) 4.5 1.6-8.6 10 ^3/uL Lymphocytes # (Auto) 1.6 0.4-5.4 10 ^3/uL Monocytes # (Auto) 0.5 0-1.3 10 ^3/uL Eosinophils # (Auto) 0.2 0-0.8 10 ^3/uL Basophils # (Auto) 0 0-0.2 10 ^3/uL Nucleated Red Blood Cells 0.1 % Sodium Level 140 136-145 mmol/L Potassium Level 4.2 3.5-5.1 mmol/L Chloride Level 112 H 98-107 mmol/L Carbon Dioxide Level 21 20-31 mmol/L Anion Gap 7 5-15 Blood Urea Nitrogen 19 9-23 mg/dL Creatinine 1.49 H 0.700-1.30 mg/dL Glomerular Filtration Rate Calc 47 >90 mL/min BUN/Creatinine Ratio 12.8 10.0-20.0 Serum Glucose 106 74-106 mg/dL Calcium Level 9.3 8.7-10.4 mg/dL Magnesium Level 2.1 1.6-2.6 mg/dL Total Bilirubin 0.4 0.2-1.0 mg/dL Aspartate Amino Transferase (AST) 25 13-40 U/L Alanine Aminotransferase (ALT) 48 H 7-40 U/L Alkaline Phosphatase 78 46-116 U/L Total Protein 6.0 5.7-8.2 g/dL Albumin 4.1 3.2-4.8 g/dL Troponin I High Sensitivity 8 </=54 ng/L Prothrombin Time 9.9 9.3-11.8 sec Prothrombin Time INR 0.93 0.9-1.15 Activated Partial Thromboplast Time 28.1 24.5-34.5 SEC D-Dimer, Quantitative 0.40 0.0-0.49 mg/L FEU Thyroid Stimulating Hormone (TSH) 2.45 0.55-4.78 uIU/mL Free Thyroxine (T4) Calculated 1.01 0.89-1.76 ng/dL Urine Color Colorless Yellow Urine Clarity Clear Clear Urine pH 5.0 5.0-9.0 Urine Specific [place] 1.009 1.001-1.035 Urine Protein Negative Negative Urine Ketones Negative Negative Urine Blood Negative Negative /uL Urine Nitrite Negative Negative Urine Bilirubin Negative Negative Urine Urobilinogen Normal Negative mg/dL Urine Leukocyte Esterase Negative Negative /uL Urine RBC <1 0 - 3 /hpf Urine Microscopic WBC < 1 0-3 /HPF Urine Squamous Epithelial Cells None seen <5 /hpf Urine Bacteria None seen None Seen /hpf Urine Glucose Normal Normal mg/dL Plan/Recommendation ASSESSMENT: This is an 79-year old male who initially presented (08/31/2024) with reports of an elevated heart rate. Patient reports he checked his pulse oximetry and found his heart rate elevated subsequently prompting further medical evaluation. Patient reports he currently lives in [place] and is out visiting his son here in [place] and upon noticing elevation in heart rate, patient was driven by his son to the ED for further evaluation. Upon ED arrival, initial 12-lead electrocardiogram was performed revealing presence of a 2:1 atrial flutter with a ventricular rate of 152bpm, QTC interval of 546ms, and an underlying right bundle branch block. Reports indicate the patient spontaneously converted to sinus rhythm without intervention as confirmed by repeat 12-lead electrocardiogram. Initial HS troponin level was found normal at 8 with subsequent repeat level of 8. Electrolytes (potassium/magnesium) were found within normal range. TSH level was found normal at 2.45. D-Dimer was found normal at 0.40. Echocardiogram was performed revealing a preserved LVEF of 55%, mild diastolic dysfunction, with normal-sized atrial chambers. Patient himself does report he has experienced palpitations in the past for which he has underwent Cardiology evaluation/workup in [place] which he reports benign findings. Upon chart review, notes further indicate he is known to take Phentermine which could have attributed to the clinical picture. At present time of consultation, telemetry reveals sinus rhythm. Denies any chest pain, shortness of breath, palpitations, dizziness, syncope, or any further cardiac related symptoms. As the patient presented with a tachyarrhythmia, Electrophysiology services have now been involved by primary cardiology request for further evaluation/management. Past medical history includes hypertension, hyperlipidemia, pulmonary hypertension, benign prostatic hypertrophy, morbid obesity, obstructive sleep apnea on CPAP therapy, and right shoulder surgery Echocardiogram revealed The left ventricle is normal size. There is mild concentric left ventricular hypertrophy. The left ventricle is normal in structure and function, LVEF 55%. Mild diastolic dysfunction. Normal wall motion. The right ventricular systolic function is normal.The left and right atrial size is normal. No significant valvular disease. No significant pericardial effusion. 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 Obstructive sleep apnea, on CPAP Benign prostatic hypertrophy Mild hydronephrosis, bilateral Nephrolithiasis, right-sided Abnormal ALT (55 - 48) Morbid obesity Hyperlipidemia Hypertension ELECTROPHYSIOLOGY SUGGESTIONS FOR MANAGEMENT: Start Metoprolol Tartrate 25mg twice daily for now Start Eliquis 5mg twice daily for CVA prophylaxis as CHADSVASc score is elevated Patient will need to follow up with outpatient cardiology services in [place] for further event monitoring As QTC interval is prolonged, recommend avoidance of QTC prolonging agents during the interim Sustain potassium levels greater than 4.0 / Sustain magnesium levels greater than 2.0 Follow up renal function/electrolytes and correct abnormalities Counseled on avoidance of using caffeine and stimulants Patient is agreeable to the above mentioned plan Proceed with close rate and rhythm surveillance Proceed with close hemodynamic surveillance Proceed with optimized blood pressure control Transfuse to sustain HGB level above 7.0 Management of diastolic heart failure as per primary cardiology Management of co-morbidities as per primary team Management of KYRA on CKD as per Nephrology Management in telemetry Follow up primary cardiology Follow up fitness sales consultant recommendations Will proceed to follow from a cardiac perspective Further recommendations per clinical progression All available diagnostic labs, EKG's, and images were personally reviewed Patient's status, findings, and plan of care was reviewed and discussed with supervising physician Dr. Lewis, who is in agreement with current plan of care. Plan of care discussed with and agreed upon by patient / primary RN Prognosis: Guarded Thank you for allowing me to participate in the care of this patient. Further recommendations based on patients clinical course and progression, primary attending, and other consultants. Will continue to follow with primary attending. If you have any questions or concerns, please do not hesitate to contact me. A total of 75 minutes was spent reviewing the patient record, examining the patient, making a diagnostic and therapeutic plan, discussing this plan with medical personnel, following up on diagnostic studies and following the patient for clinical stability excluding any and all procedures. At least 50% of this time was spent in direct, [id number] contact. Plan discussed with: Patient (Patient and Primary RN ) JOEAURYPINA KHAN Sep 02, 2024 14:41
--- NOTE | 2024-09-02 15:06 | DVHPN2 ---
Consult Progress Note Date Seen: Sep 02, 2024 Subjective Review of Systems: CVS:Normal, RESPIRATORY:Normal, NEURO:Normal Objective vital signs Vital Sign Date Time Temp Pulse Resp B/P (MAP) Pulse Ox O2 Delivery O2 Flow Rate FiO2 09/02/24 10:31 124/62 09/02/24 09:00 97.5 86 18 97 97.5 09/02/24 08:10 Room Air* 0 21 Total Intake and Output 09/01/24 09/01/24 09/02/24 14:59 22:59 06:59 Intake Total 598 ml 100 ml Balance 598 ml 100 ml medications Current Medications Medications Dose Ordered Sig/Nagi Route Start Time Stop Time Status Last Admin Dose Admin Sodium Chloride 10 ml Q8HR IV 08/31/24 22:00 09/02/24 14:58 10 ML Docusate Sodium 100 mg BIDPRN PRN PO 08/31/24 16:30 Acetaminophen 650 mg Q6HP PRN PO 08/31/24 16:30 Ondansetron HCl 4 mg Q4HP PRN IV 08/31/24 16:30 Furosemide 40 mg DAILY PO 09/02/24 10:00 09/02/24 10:31 40 MG Gabapentin 300 mg BID PO 09/01/24 22:00 09/02/24 10:31 300 MG Metformin HCl 500 mg BID PO 09/01/24 22:00 09/02/24 10:30 500 MG Potassium Chloride 10 meq BID PO 09/01/24 22:00 09/02/24 10:31 10 MEQ Atorvastatin Calcium 40 mg DAILY PO 09/02/24 10:00 09/02/24 10:32 40 MG Losartan Potassium 50 mg DAILY PO 09/02/24 10:00 09/02/24 10:30 50 MG Patient Own Medication 1 tab DAILY PO 09/02/24 10:00 Topiramate 50 mg BID PO 09/01/24 22:00 Finasteride 5 mg DAILY PO 09/01/24 19:00 09/02/24 10:32 5 MG Tamsulosin HCl 0.4 mg HS PO 09/01/24 19:00 09/01/24 21:22 0.4 MG Metoprolol Tartrate 25 mg BID PO 09/02/24 22:00 Apixaban 5 mg BID PO 09/02/24 22:00 Examination: LUNGS:Normal, CVS:Normal, NEURO:Normal laboratory and microbiology Laboratory Tests 09/02/24 06:22 Test 09/02/24 06:22 Range/Units Serum Glucose 106 74-106 mg/dL Problem List/Assessment/Plan Problem List/Assessment/Plan 2:1 atrial flutter with RVR, new onset Presence of right bundle branch block 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 Luna) Transthoracic echocardiogram revealed an EF of 55%. Continue electrophysiology team recommendations. Follow up with cardiology/EP within 1-2 weeks post discharge. There is no further cardiac work-up indicated at this time. Thank you for allowing us to care for this patient. This medical document was created using an electronic medical record system with voice recognition software and computerized dictation system. Although this document has been carefully reviewed, there might still be some phonetic and typographical errors. Occasional wrong-word or ``sound-alike substitutions may have occurred due to the inherent limitations of voice recognition software. These areas are purely typographical due to imperfections of the software programs and do not reflect any compromise in the patient's medical care. Please read the chart carefully and recognize, using context, where these substitutions have occurred. Plan discussed with: Patient, Other Date of Service: Sep 02, 2024 Billing Provider: ROCIO HYMAN Cardiology Common Codes: 62352-[id number] INP/OBS CARE(Mod) ROCIO HYMAN Sep 02, 2024 15:06
[2024-09-02] MEDS ORDERED: MET25T PO (17:44)
[2024-09-02] MEDS ORDERED: APIX5TAB PO (17:44)
--- NOTE | 2024-09-02 17:49 | DVHDS2 ---
Discharge Summary Date of Admission Aug 31, 2024 at 16:24 Date of Discharge: Sep 02, 2024 Admitting Diagnosis palpitations Labs/Diagnostic Data: Laboratory Results Test 09/02/24 06:22 08/31/24 13:02 08/31/24 11:10 08/31/24 11:01 White Blood Count 6.9 10^3/uL (4.4-10.8) Red Blood Count 4.55 10^6/uL (4.5-5.90) Hemoglobin 14.3 g/dL (13.5-17.5) Hematocrit 43.4 % (41.0-53.0) Mean Corpuscular Volume 95.3 fL (80.0-100.0) Mean Corpuscular Hemoglobin 31.4 pg (28.0-32.0) Mean Corpuscular Hemoglobin Concent 32.9 g/dL (32.0-36.0) Red Cell Distribution Width 14.0 % (11.8-14.3) Platelet Count 176 10^3/uL (140-450) Mean Platelet Volume 9.5 fL (6.9-10.8) Neutrophils (%) (Auto) 65.5 % (37.0-80.0) Lymphocytes (%) (Auto) 23.7 % (10.0-50.0) Monocytes (%) (Auto) 7.9 % (0.0-12.0) Eosinophils (%) (Auto) 2.4 % (0.0-7.0) Basophils (%) (Auto) 0.5 % (0.0-2.0) Neutrophils # (Auto) 4.5 10 ^3/uL (1.6-8.6) Lymphocytes # (Auto) 1.6 10 ^3/uL (0.4-5.4) Monocytes # (Auto) 0.5 10 ^3/uL (0-1.3) Eosinophils # (Auto) 0.2 10 ^3/uL (0-0.8) Basophils # (Auto) 0 10 ^3/uL (0-0.2) Nucleated Red Blood Cells 0.1 % Sodium Level 140 mmol/L (136-145) Potassium Level 4.2 mmol/L (3.5-5.1) Chloride Level 112 mmol/L (98-107) Carbon Dioxide Level 21 mmol/L (20-31) Anion Gap 7 (5-15) Blood Urea Nitrogen 19 mg/dL (9-23) Creatinine 1.49 mg/dL (0.700-1.30) Glomerular Filtration Rate Calc 47 mL/min (>90) BUN/Creatinine Ratio 12.8 (10.0-20.0) Serum Glucose 106 mg/dL (74-106) Calcium Level 9.3 mg/dL (8.7-10.4) Magnesium Level 2.1 mg/dL (1.6-2.6) Total Bilirubin 0.4 mg/dL (0.2-1.0) Aspartate Amino Transferase (AST) 25 U/L (13-40) Alanine Aminotransferase (ALT) 48 U/L (7-40) Alkaline Phosphatase 78 U/L (46-116) Total Protein 6.0 g/dL (5.7-8.2) Albumin 4.1 g/dL (3.2-4.8) Troponin I High Sensitivity 8 ng/L (</=54) Prothrombin Time 9.9 sec (9.3-11.8) Prothrombin Time INR 0.93 (0.9-1.15) Activated Partial Thromboplast Time 28.1 SEC (24.5-34.5) D-Dimer, Quantitative 0.40 mg/L FEU (0.0-0.49) Thyroid Stimulating Hormone (TSH) 2.45 uIU/mL (0.55-4.78) Free Thyroxine (T4) Calculated 1.01 ng/dL (0.89-1.76) Urine Color Colorless (Yellow) Urine Clarity Clear (Clear) Urine pH 5.0 (5.0-9.0) Urine Specific [place] 1.009 (1.001-1.035) Urine Protein Negative (Negative) Urine Ketones Negative (Negative) Urine Blood Negative /uL (Negative) Urine Nitrite Negative (Negative) Urine Bilirubin Negative (Negative) Urine Urobilinogen Normal mg/dL (Negative) Urine Leukocyte Esterase Negative /uL (Negative) Urine RBC <1 /hpf (0 - 3) Urine Microscopic WBC < 1 /HPF (0-3) Urine Squamous Epithelial Cells None seen /hpf (<5) Urine Bacteria None seen /hpf (None Seen) Urine Glucose Normal mg/dL (Normal) Other Laboratory Tests 09/02/24 06:22 Brief Hx & Hospital Course: HPI: 79 M w PMHx of Neuropathy, Pulmonary HTN, hyperlipidemia, and Pre DM, presents to the ED for an evaluation of palpitations. Patient reports he woke up this morning with a HR of 134 that would not go down, states he arrived to this area yesterday from [place] via driving. Patient denies any chest pain, SOB, nausea, vomiting, diarrhea, leg pain, fever, or chills. Patient does report frequent irregular heart rate tracked by his watch device but has not been diagnosed with AFIB. course: initial EKG with tachycardia, Sinus tachycardic with a right bundle branch block. patient has no history of heart failure or coronary artery disease. patient just recently did11 hour drive to see his son. TSH is normal . no URI symptoms . Troponins are negative. Echo normal EF 55% mild LVDD, concentric LVH mild, no WMA. patient medication includes phentermine, niacin,- these medications can cause tachycardia. Hypovolemia/not drinking hydrating during drive can also cause tachycardia from volume depletion. on admit patiet given 1L LR and home meds and put on tele with cardiac plan protocol (ekg prn). few hours after admit and after IVF, tachycardia resolves. cardiology concerns with EKG review, EP consulted and reviews case as 2:1 atrial flutter with elevated CHADVASC needing Bblocker and DOAC. stable to dc wth plan below. 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 - follow-up with PCP for discharge review. 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 Patient was counseled about treatment plan, medications, possible side effects, patientverbalized understanding. All questions were answered to the best of my ability. This discharge took greater then 30 minutes in planning, reviewing documentation, counseling the patient, and discussing with other team members." Date of Service: Sep 02, 2024 Billing Provider: MARIA ESTHER JACOBS MD Common Visit Codes: [id number] DISCH DAY >30min MARIA ESTHER JACOBS MD Sep 02, 2024 17:49
[2024-09-02] MEDS ORDERED: METOPROLOL TARTRATE 25 MG TAB PO SCH (22:00)
[2024-09-02] MEDS ORDERED: APIXABAN 5 MG TAB PO SCH (22:00)
--- NOTE | 2024-09-03 10:33 | ECG ---
[facility] Test Date: 2024-09-02 Test Time: 13:26:00 Pat Name: PARUL FLANNERY Department: Room: 0274T A Gender: M [employer] Intern: CANDACE OTERO : 1945 Requested By: AURY DIAZ Order Number: [id number] Reading MD: Abrahan Luna Measurements Intervals [place] Rate: 81 P: 50 CO: 169 QRS: -44 QRSD: 156 T: 4 QT: 416 QTc: 483 Interpretive Statements Sinus rhythm RBBB and LAFB Inferior infarct, old Lateral leads are also involved Electronically Signed On 09-03-2024 17:45:07 PST by Abrahan Luna Please click the below link to view image of tracing.
== END 2024-09-02 19:58 | disposition home or self-care (01) | DRG 308 ==
LOC: ER 10:46 → TELE 16:24 → TELE-WESTW 21:29
PROVIDERS: ADMIT Internal Medicine; ATTEND Student in an Organized Health Care Education/Training Program
DX: I47.10 Supraventricular tachycardia, unspecified (principal); N17.0 Acute kidney failure with tubular necrosis; I13.0 Hypertensive heart and chronic kidney disease with heart failure and stage 1 through stage 4 chronic kidney disease, or unspecified chronic kidney disease; N13.2 Hydronephrosis with renal and ureteral calculous obstruction; I48.92 Unspecified atrial flutter; E78.5 Hyperlipidemia, unspecified; E86.1 Hypovolemia; I27.20 Pulmonary hypertension, unspecified; N40.0 Benign prostatic hyperplasia without lower urinary tract symptoms; E11.22 Type 2 diabetes mellitus with diabetic chronic kidney disease; I50.9 Heart failure, unspecified; N18.2 Chronic kidney disease, stage 2 (mild); I45.10 Unspecified right bundle-branch block; G47.33 Obstructive sleep apnea (adult) (pediatric); E66.01 Morbid (severe) obesity due to excess calories; Z68.38 Body mass index [BMI] 38.0-38.9, adult; Z98.1 Arthrodesis status; Z79.84 Long term (current) use of oral hypoglycemic drugs; Z79.899 Other long term (current) drug therapy
CPT/HCPCS: 36415; 71045; 76775; 80053; 81001; 83735; 84439; 84443; 84484; 85025; 85379; 85610; 85730; 93005; 93306; 99291; G0378